=== PATIENT | male | born 1955 | race Caucasian/White ===

== ENCOUNTER 2021-09-16 11:50 | Emergency (ER) | payer OTHER, MEDICARE ==
[2021-09-16] MEDS ORDERED: Bupivacaine 0.5% 10 ML SDV INJECT ONE (12:14)
[2021-09-16] MEDS ORDERED: Bacitracin Oint 1 GM U/D Packet TOP ONE (12:37)
== END 2021-09-16 12:59 | disposition home or self-care (01) ==
LOC: JP.ED 11:50
DX: L02.511 Cutaneous abscess of right hand (principal); Z91.030 Bee allergy status; Z72.0 Tobacco use
CPT/HCPCS: 26010; 87070; 87077; 87186; 87205; 99282; 99283-25; J3490